=== PATIENT | male | born 2005 | race Two or more races ===

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

== ENCOUNTER 2024-05-01 20:08 | Emergency (ER) | payer OTHER, SELFPAY ==
--- NOTE | ~2024-05-01 | CT_ITS ---
EXAMINATION: CT head/brain wo IV con CLINICAL INFORMATION: Headache COMPARISON: None. TECHNIQUE: Contiguous axial imaging was performed from the skull base to vertex without intravenous contrast. This CT examination was performed using dose optimization techniques as appropriate, variously including the following: * Automated exposure control * Adjustment of mA and/or kV according to patient size (this includes techniques or standardized protocols for targeted exams where dose is matched to indication/reason for exam; i.e. extremities or head) * Use of iterative reconstruction technique DLP: 782 mGy-cm. FINDINGS: There is no evidence of acute intracranial hemorrhage or territorial infarction. Liu to white matter differentiation is well preserved. No abnormal mass effect or midline shift is seen. No extra-axial fluid collections are identified. No hydrocephalus. No significant volume loss. There is no abnormal attenuation within the brain parenchyma. The cerebellar tonsils are well positioned. No acute osseous or soft tissue abnormality. Visualized portions of the orbits are unremarkable. Scattered mucoperiosteal thickening in the visualized paranasal sinuses. Mastoid air cells are well-aerated. CT/CT head/brain wo IV con IMPRESSION: No acute intracranial hemorrhage or edematous territorial infarction.
[2024-05-01 20:12] VITALS: BP 116/69; PULSE 108; RESP 20; TEMP 37.2; O2SAT 98; BMI 26.0
[2024-05-01 20:38] LABS: Basophils Percent Auto 0.4 % (0-2); Eosinophils Absolute Auto 0.3 X10*3/uL (0.0-0.4); Eosinophils Percent Auto 2.7 % (0-4); Hematocrit 39.8 % (42.0-52.0); Hemoglobin 13.7 g/dl (14.0-18.0); Imm Gran Abs Auto 0.03 X10*3/uL (0.00-0.03); Imm Gran Pct Auto 0.3 % (0.0-0.4); Lymphocytes Absolute Auto 2.4 X10*3/uL (1.2-4.9); Lymphocytes Percent Auto 25.5 % (20-40); MANUAL DIFF FLAG NO; Mean Corpuscular HGB Conc 34.4 g/dl (31.0-36.0); Mean Corpuscular Hemoglobin 28.9 pg (27.0-33.0); Mean Platelet Volume 9.6 fL (9.4-12.4); Monocytes Absolute Auto 0.8 X10*3/uL (0.1-1.2); Monocytes Percent Auto 8.5 % (2-11); Neutrophils Absolute Auto 5.9 x10*3/uL (2.0-8.3); Neutrophils Percent Auto 62.6 % (45-73); Platelet Count 258 X10*3/uL (160-400); Red Blood Count 4.74 X10*6/uL (4.60-5.80); Red Cell Distribution Width 12.6 % (11.0-16.0); White Blood Count 9.4 X10*3/uL (4.8-10.8)
--- NOTE | 2024-05-01 20:42 | ECG_ITS ---
Test Reason : SYNCOPE Blood Pressure : / mmHG Vent. Rate : 096 BPM Atrial Rate : 096 BPM P-R Int : 186 ms QRS Dur : 084 ms QT Int : 326 ms P-R-T Axes : 064 038 027 degrees QTc Int : 411 ms Normal sinus rhythm Normal ECG When compared with ECG of 04-JAN-2022 20:41, No significant change was found Referred By: Phillip Johnson Electronically Signed By:MOISE HANKINS MD
[2024-05-01 20:51] LABS: Alanine Aminotransferase 16 U/L (0-40); Albumin Level 4.2 g/dL (3.5-5.0); Alkaline Phosphatase 76 U/L (39-117); Anion Gap 14 (12-20); Aspartate Amino Transferase 20 U/L (5-37); Bilirubin Total 0.2 mg/dL (0.0-1.0); Blood Urea Nitrogen 18 mg/dL (9-16); C Reactive Protein 1.39 mg/dL (< or = 0.50); Calcium 9.1 mg/dL (8.4-10.2); Carbon Dioxide 27 mmol/L (22-29); Chloride 106 mmol/L (96-108); Creatinine Clr Calc Pharmacy 101.7; Estimated Glomerular Filt Rate > 60; Glucose Random 79 mg/dL (60-115); Magnesium 1.7 mg/dL (1.6-2.6); Potassium 3.9 mmol/L (3.3-5.1); Sodium 143 mmol/L (135-145); Total Protein 7.3 g/dL (6.5-8.0)
[2024-05-01 20:59] LABS: INTERNATIONAL NORM RATIO 1.1 (0.9-1.1); Prothrombin Time 13.6 SEC (11.1-13.3)
[2024-05-01 21:02] LABS: D Dimer High Sensitivity < 150 NG/ML
[2024-05-01 21:03] LABS: Ethanol < 10 mg/dL
[2024-05-01 21:07] VITALS: BP 107/47; BP 113/48; BP 130/64; PULSE 100; PULSE 101; PULSE 104
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
[2024-05-01 21:37] LABS: Appearance Urine Clear; Color Urine Yellow; Glucose Urine UA Negative (Negative); Leukocyte Esterase Urine Negative (Negative); Nitrite Urine Negative (Negative); PH 5.5 (5.0-9.0); Specific Gravity - Urine >= 1.030 (1.005-1.025); UMIC TRIGGER UACC YES; Urine Blood Small (1+) (Negative); Urine Ketones Trace mg/dL (Negative); Urine Protein Trace mg/dL (Neg-Trace)
[2024-05-01 21:42] LABS: Bacteria Urine None Seen (None Seen); Hyaline Casts Urine 0-2 /LPF (0-2); Squamous Epithelial Cell Urine 0-2 /HPF (0-2); WBC Urine 0-5 /HPF (0-5)
[2024-05-01 21:49] LABS: Amphetamine Screen Urine Not Detected (Not Detect); Barbiturates, Urine Not Detected (Not Detect); Benzodiazepines Screen Urine Not Detected (Not Detect); Buprenorphine Scr Not Detected (Not Detect); Cannabinoid Screen Urine Not Detected (Not Detect); Cocaine Screen Urine Not Detected (Not Detect); Fentanyl, urine Not Detected (Not Detect); Methadone Screen, Urine Not Detected (Not Detect); Opiate Screen Urine Not Detected (Not Detect); Oxycodone Screen Urine Not Detected (Not Detect); Phencyclidine Screen Urine Not Detected (Not Detect)
[2024-05-01] MEDS: 0.9 % Sodium Chloride 1,000 ML 999 ML IV (22:07)
[2024-05-01] MEDS: Ketorolac Tromethamine 30 MG/ML VIAL IVPUSH (22:07)
[2024-05-01 22:31] VITALS: BP 107/41; PULSE 82; RESP 15; O2SAT 99
[2024-05-01 23:11] LABS: Influenza A PCR NEGATIVE (Negative); Influenza B PCR NEGATIVE (Negative); Resp Syncy Virus RNA Qual PCR NEGATIVE (Negative); SARS COV2 PCR INHOUSE NEGATIVE (Negative)
[2024-05-01 23:46] VITALS: BP 108/38; PULSE 89; RESP 14; TEMP 37; O2SAT 98
[2024-05-02 00:12] VITALS: BP 112/45; PULSE 78; RESP 14; TEMP 36.8; O2SAT 98
== END 2024-05-02 00:13 | disposition home or self-care (01) ==
PROVIDERS: Physician Assistant; Physician Assistant Medical; Emergency Provider Emergency Medicine; PCP Pediatrics
DX: R55 Syncope and collapse (principal); R51.9 Headache, unspecified
CPT/HCPCS: 0241U; 36415; 70450; 80053; 80307; 81001; 83735; 85025; 85379; 85610; 86140; 93005; 96361; 96374; 99284; 99285; J1885

== ENCOUNTER → 2024-05-01 20:42 | Outpatient (BNV) | payer OTHER, SELFPAY | PROVIDERS: Emergency Provider Emergency Medicine; PCP Pediatrics; Visit Provider Internal Medicine Cardiovascular Disease | DX: R55 Syncope and collapse (principal) | CPT/HCPCS: 93010 ==

== ENCOUNTER 2024-06-05 00:10 | Emergency (ER) | payer OTHER, SELFPAY ==
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
[2024-06-05 00:26] VITALS: BP 108/69; PULSE 84; RESP 14; TEMP 36.7; O2SAT 97; BMI 24.8
[2024-06-05] MEDS: Ibuprofen 600 MG TABLET PO (01:38)
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
[2024-06-05 02:31] VITALS: BP 108/69; PULSE 84; RESP 14; TEMP 36.7; O2SAT 97
== END 2024-06-05 02:33 | disposition home or self-care (01) ==
PROVIDERS: Emergency Provider Emergency Medicine
DX: S13.4XXA Sprain of ligaments of cervical spine, initial encounter (principal); M54.2 Cervicalgia; V43.52XA Car driver injured in collision with other type car in traffic accident, initial encounter; Y93.89 Activity, other specified; Y92.488 Other paved roadways as the place of occurrence of the external cause; Y99.8 Other external cause status
CPT/HCPCS: 72125; 99283; 99284

== ENCOUNTER 2024-07-05 08:08 | Outpatient (AMB) | payer OTHER, SELFPAY ==
[2024-07-05 08:18] VITALS: BP 98/66; PULSE 72; BMI 26.6
--- NOTE | 2024-07-05 08:18 | A.OFFVIS_ITS ---
Vital Signs 07/05/24 08:18 Height 5 ft 3 in Weight 150 lb 5.684 oz BMI 26.6 BP 98/66 Blood Pressure Location Lt brachial Position Sitting Pulse 72 Pulse Source Pulse Oximeter Intake Visit Reasons: [place] [facility] [place] Associate Required: No Rubbish Collection Supervisor: Rubbish Collection Supervisor Present Accompanied by: Mother Allergies No Known Allergies Allergy (Verified 06/05/24 00:28) Medication List - Last Reconciled 07/05/24 by Yordy Nguyen MD No Known Home Meds HPI Comments Details: Roni is here for consultation regarding syncopal episodes. Mother states that patient has had about 5-6 episodes of syncope over the last year. Initially started 1 year ago when he apparently had a tetanus shot. Since then, every few months he is getting syncopal episode. On some occasions, she has seen her eyes rolling back. Others or unwitnessed. Has happened while driving and otherwise fairly random. No known cardiac history otherwise. No family history of any major cardiac concerns either. He was seen in the ER, thought to be possibly vasovagal. Hence referred to Cardiology and Neurology. [facility] Medical History No pertinent past medical history Family History Father No problems noted. Mother No problems noted. Social History Alcohol intake: never Patient Tobacco Use Status: Never used Tobacco Review of Systems Const Denies chills, Denies daytime sleepiness, Denies fatigue, Denies fever(s), Denies poor appetite, Denies snoring, Denies stops breathing during sleep, Denies weakness, Denies weight gain and Denies weight loss Eyes Denies loss of vision ENT Denies dizziness and Denies hearing loss Card Denies chest pain, Denies irregular heart rhythm, Denies claudication, Denies leg edema, Denies lightheadedness, Denies palpitations, Denies dyspnea on exertion and Denies orthopnea Resp Denies cough, Denies excessive phlegm production, Denies dyspnea on exertion, Denies snoring and Denies wheezing GI Denies abdominal pain, Denies hematochezia, Denies change in bowel habits, Denies nausea and Denies vomiting Denies dysuria and Denies urinary frequency Musc Denies arthralgias, Denies muscle weakness, Denies numbness and Denies other Skin/Breast Denies nail changes and Denies rash Neuro Denies Abnormal speech present, Denies dizziness, Denies loss of vision, Denies memory loss, Denies numbness and Denies weakness Psych Denies depression and Denies memory loss Endo Denies fatigue and Denies palpitations Aris/Lymph Denies easy bruising Aller/Immun Denies wheezing Physical Exam Vital Signs: Last Vital Signs Pulse 72 07/05/24 08:18 BP 98/66 07/05/24 08:18 BMI result Body Mass Index 26.6 Const General: comfortable and no acute distress Orientation/consciousness: patient oriented x3 HEENT Other: Unremarkable Head: Yes normal to inspection Neck Neck: Yes normal visual inspection Chest Chest palpation & inspection: normal inspection of the chest Resp Auscultation: clear to auscultation bilaterally Cardio Palpation: normal PMI Heart sounds: S1 normal heart sound present, S2 normal heart sound present, no gallops, no murmurs and no rubs GI Palpation (GI): Soft to palpation Back/Spine/Pelvis Other: unremarkable Skin General skin exam: no rashes or lesions noted Neuro General: patient oriented x3 Speech: No Abnormal speech present Extrem General: Yes normal to inspection Psych Mental Status: mental status grossly normal Assessment & Plan Assessment & Plan (1) Syncope and collapse: Code(s): R55 - Syncope and collapse Category: Medical Plan EKG with underlying sinus rhythm at 96/Min; no significant ST-T changes; normal ND and corrected QT. Etiology for syncope unclear. Differential includes arrhythmogenic which is less likely as the baseline EKGs completely normal. Blood pressure somewhat lowish today and orthostatic hypotension possible but again not definitive. Seizure is a possibility as well. No obvious murmurs on exam. Will start with an echocardiogram, 30 day monitor and tilt-table test. Neurology referral. Discussed with mother and she agrees. Advised not to drive for now. Will follow after testing. Orders: Orders CA echo transthoracic complete Today R55 - Syncope and collapse ECG Tilt Table Test Today R55 - Syncope and collapse ECG 30 day event monitor Today R55 - Syncope and collapse Referrals Neurology Referral R55 - Syncope and collapse Medications: Discontinued bacitracin Discontinued Reason: Patient no longer taking 1 appl topical TID 14 grams 0RF Coding Level of Care Code New Pt Level 4 (80913) Diagnoses Syncope and collapse R55
== END 2024-07-05 08:44 | disposition home or self-care (01) ==
PROVIDERS: PCP Pediatrics; Visit Provider Internal Medicine
DX: R55 Syncope and collapse (principal)
CPT/HCPCS: 99204

== ENCOUNTER → 2024-07-05 08:08 | Outpatient (BNVA) | payer OTHER, SELFPAY | PROVIDERS: PCP Pediatrics; Visit Provider Internal Medicine | DX: R55 Syncope and collapse (principal) | CPT/HCPCS: 99202 ==

== ENCOUNTER → 2024-08-10 07:58 | Outpatient (BNV) | payer OTHER, SELFPAY | PROVIDERS: Visit Provider Internal Medicine | DX: R55 Syncope and collapse (principal) | CPT/HCPCS: 93272; 93306 ==

== ENCOUNTER → 2024-08-10 07:59 | Outpatient (REF) | payer OTHER, SELFPAY ==
--- NOTE | 2024-08-10 07:58 | CA_ITS ---
Transthoracic Echocardiogram Patient (Last, First, Middle): Roni Madera L Gender: Male Date of : 2005 Age: 18 Procedure Date: 08/10/2024 Procedure Type: Transthoracic Echocardiogram Location: OP Height: 160.02 cm Weight: 67.13 kg BSA: 1.70 m2 Heart Rate: bpm BP: 110 / 64 mmHg Marine Underwriter: BERNADETTE Referring MD: Yordy Nguyen MD Symptoms: R55 - Syncope and collapse Study Quality: Adequate ECG Rhythm: Sinus Conclusions: - The left ventricular systolic function is normal. The calculated ejection fraction is 62% by biplane method. - No obvious valvular pathology seen on this study. Findings Left Ventricle Normal left ventricular cavity size. There is normal left ventricular wall thickness. The left ventricular systolic function is normal. The calculated ejection fraction is 62% by biplane method. There is no evidence of regional wall motion abnormalities. Diastolic function is normal for age. Right Ventricle Normal right ventricular cavity size and systolic function. Atria Both atria are normal in size. Aortic Valve There is a normal trileaflet aortic valve. There is no aortic valve stenosis. There is no aortic valve regurgitation. Mitral Valve The mitral valve appears normal. There is trace mitral valve regurgitation. There is no mitral valve stenosis. Pulmonic Valve The pulmonic valve is likely normal. Tricuspid Valve Normal tricuspid valve structure. There is mild tricuspid valve regurgitation. There is no evidence of pulmonary hypertension. Great Vessels The asc aorta is normal in size. Venous The inferior vena cava is normal in size and collapses greater than 50% with inspiration. Pericardium/Pleural There is no evidence of pericardial effusion. Prior Study Comparison No prior study available for comparison. Recommendations, Care & Conclusions No obvious valvular pathology seen on this study. Measurements 2D Linear Measurements IVSd: 0.65 0.6-0.9/0.6-1.0 cm LVIDd: 4.81 3.9-5.3/4.2-5.9 cm LVIDd Index: 2.83 2.4-3.2/2.2-3.1 cm/m2 LVIDs: 3.35 2.0-3.6 cm LVPWd: 0.91 0.7-1.1 cm LA Diam: 2.60 2.7-3.8/3.0-4.0 cm LAIDs Index: 1.53 1.5-2.3 cm/m2 LV Mass: 152.82 67-162/88-224 g LV Mass Index: 89.90 43-95/49-115 g/m2 LVOT Diam: 2.10 3.0+(-)1.3 cm 2D Systolic Function EF 4C: 62.00 >55% EF 2C: 61.90 >55% EF BiP: 62.40 >55% Mitral Valve MV Pk E: 0.89 MV PK A: 0.29 MV Decel Time: 237.00 E/A: 3.10 E'Lateral: 16.30 E'Medial: 12.10 E/E' Med: 7.40 E/E' Lat: 5.50 PHT: 69.00 MVA PHT: 3.19 Decel [place]: 3.76 Aortic Valve AoV Pk Joseluis: 1.35 AoV Mn Joseluis: 0.95 AoV VTI: 0.32 AoV Pk Grad: 7.00 Aov Mn Grad: 4.00 BRENDON Cont.VTI: 2.36 LVOT LVOT Pk Joseluis: 1.08 LVOT Mn Joseluis: 0.69 LVOT VTI: 0.22 LVOT Pk Grad: 5.00 LVOT Mn Grad: 2.00 LVOT Diam: 2.10 LVOT Area: 3.46 Diastolic Function MV Pk E: 0.89 MV Pk A: 0.29 E/A: 3.10 E'Medial: 12.10 E/E' Med: 7.40 E' Laterial: 16.30 E/E' Lat: 5.50 Right Ventricle TAPSE (mm): 25.00 TVS' Joseluis: 15.60 Tricuspid Valve TR Pk Joseluis: 2.31 TR Pk Grad: 21.00 RA Press: 3.00 RVSP: 24.00 Great Vessels Aorta Sinus of Valsalva: 2.57 2.0-3.[address] [place]: 1.92 1.7-3.4 cm Ao Asc: 2.50 2.1-3.4 cm Updated in Other Vendor System with Status of Final Yordy Nguyen MD electronically signed on 08/12/2024 9:19:26 AM with status of Final
--- NOTE | 2024-08-10 08:04 | HM_ITS ---
* Total procedure length 30 days. Wear time only 20 hours. * Underlying rhythm is sinus with an average ventricular rate of 79/Min. * No significant ectopy or other arrhythmias in the monitoring period. * No symptoms mentioned in diary. MTDD
== END ==
LOC: HO.CARD 07:59
PROVIDERS: Visit Provider Internal Medicine
DX: R55 Syncope and collapse (principal)
CPT/HCPCS: 93270; 93306

== ENCOUNTER 2024-11-21 14:22 | Outpatient (AMB) | payer OTHER, SELFPAY ==
[2024-11-21 14:38] VITALS: BP 98/80; PULSE 78; BMI 26.6
--- NOTE | 2024-11-21 14:38 | A.OFFVIS_ITS ---
Vital Signs 11/21/24 14:38 Height 5 ft 3 in Weight 150 lb BMI 26.6 BP 98/80 Blood Pressure Location Rt brachial Pulse 78 Intake Visit Reasons: F/U after testing Accompanied by: Mother Allergies No Known Allergies Allergy (Verified 11/21/24 14:38) Medication List - Last Reconciled 11/21/24 by Valerie Contreras, [employer] No Known Home Meds HPI HPI F/U after testing: Details: Roni is a 18-year-old male with past medical history of syncopal episodes. On last visit an echocardiogram, cardiac event monitor and tilt-table were ordered and he now presents for follow-up. Today he reports that he has not had any syncope since his last visit 07/05/2024. He says the episodes previously had occurred randomly without known triggers. Could feel an episode coming on with a feeling of lightheadedness. Has had episodes with standing and sitting. He currently feels well with no concerning symptoms. No chest pains, shortness of breath, heart palpitations. He works evening shift in a half-way. Mother is present. COUNTS INCLUDE 234 BEDS AT THE [facility] Medical History No pertinent past medical history Family History Father No problems noted. Mother No problems noted. Social History Alcohol intake: never Patient Tobacco Use Status: Never used Tobacco Review of Systems Const All systems reviewed & are unremarkable except as noted in HPI and below Card Denies chest pain, Denies chest pain at rest, Denies chest pain with activity, Reports syncope, Denies rapid heart rate, Denies palpitations, Denies dyspnea, Denies dyspnea on exertion and Denies orthopnea Resp Denies dyspnea and Denies dyspnea on exertion GI Reports no additional complaints Neuro Reports syncope Endo Denies palpitations Physical Exam Vital Signs: Last Vital Signs Pulse 78 11/21/24 14:38 BP 98/80 11/21/24 14:38 BMI result Body Mass Index 26.6 Const General: cooperative, healthy appearing, comfortable and no acute distress Orientation/consciousness: patient oriented x3 Resp Effort & Inspection: normal respiratory effort Auscultation: clear to auscultation bilaterally, no rales, no rhonchi and no wheezes Cardio Rate: regular rate Rhythm: regular rhythm Heart sounds: S1 normal heart sound present, S2 normal heart sound present, no murmurs and no rubs Neuro General: patient oriented x3 Psych Appearance: grossly normal Mental Status: mental status grossly normal Speech and movement: Normal speech and movement present Assessment & Plan Assessment & Plan (1) Syncope and collapse: Code(s): R55 - Syncope and collapse Category: Medical Plan: Reported episodes of syncope. Episodes have occurred with both standing and sitting. Preceded by lightheadedness, no clear triggers. His 1st episode did occur over a year ago following a tetanus shot. No episodes in the last 5 months. Baseline EKG is normal making arrhythmia less likely. A cardiac event monitor for 30 days had been ordered. Patient only wore the monitor for 20 hours which showed only sinus rhythm with an average heart rate 79. An echocardiogram was done on 08/10/2024 showing EF 62%, no valve abnormalities and no regional wall motion abnormalities. A tilt-table test was ordered however he was no showed for the appointment and did not reschedule. He is interested in rescheduling the tilt-table test. Plan to call him when test results are available. Blood pressure is on the low side today. Instructed to maintain good hydration, recognize symptoms of presyncope and sit/lay down if able. No driving if he is ever symptomatic. His symptoms do sound like they could be vasovagal syncope. Cardiology follow-up to be determined. Patient and mother agreeable to this plan. Plan Time spent on chart review, documentation, interviewed assessment Coding Level of Care Code Est Pt Level 3 (11189) Complex EM visit Add On G2211 Diagnoses Syncope and collapse R55 Time Spent (min) 22
== END 2024-11-21 15:25 | disposition home or self-care (01) ==
PROVIDERS: Visit Provider Nurse Practitioner Family
DX: R55 Syncope and collapse (principal)
CPT/HCPCS: 99213; G2211

== ENCOUNTER → 2024-11-21 14:22 | Outpatient (BNVA) | payer OTHER, SELFPAY | PROVIDERS: Visit Provider Nurse Practitioner Family | DX: R55 Syncope and collapse (principal) | CPT/HCPCS: 99212 ==